=== PATIENT | male | born 1930 | race Caucasian/White ===

== ENCOUNTER 2017-07-28 11:08 | Day surgery (SDC) | payer MEDICARE, OTHER ==
[~2017-07-28] VITALS: Ht 165.1 cm; Wt 91.8 kg
[~2017-07-28 11:08] MED LIST: ADRENOID CAPSU1 EACH PO; CEPH500 PO; CIPR500; Cipro500 MG PO; Coreg12.5 MG; ERGO400 PO; FINA5 PO; FURO40 PO; LISI5; LOSA25 PO; MULTI VITAMIN1 EACH PO; OMEP20ER PO; SPIR25 PO; TAMS.4ER; TOBDEXOPO RIGHTEYE; Tessalon200 MG; Zofran Odt8 MG SL
== END 2017-07-28 12:40 | disposition home or self-care (01) ==
LOC: ORSCSDS 11:08
PROVIDERS: Orthopaedic Surgery
PROC: 01N54ZZ Release Median Nerve, Percutaneous Endoscopic Approach (ICD-10-PCS; principal; 2017-07-28 12:30)
DX: G56.02 Carpal tunnel syndrome, left upper limb (principal); I10 Essential (primary) hypertension; K21.9 Gastro-esophageal reflux disease without esophagitis; Z95.0 Presence of cardiac pacemaker; I44.1 Atrioventricular block, second degree; R73.9 Hyperglycemia, unspecified; E66.9 Obesity, unspecified; Z68.33 Body mass index [BMI] 33.0-33.9, adult; Z79.899 Other long term (current) drug therapy
CPT/HCPCS: J0171; J0690; J2250; J3010; J7120